=== PATIENT | female | born 1965 | race Caucasian/White ===

== ENCOUNTER → 2020-08-02 11:05 | Outpatient (CLI) | payer MEDICARE, MEDICAID, SELFPAY ==
--- NOTE | ~2020-08-02 | MM_ITS ---
EXAMINATION: MM screening dinora BI w rula HISTORY: Screening mammogram TECHNIQUE: Craniocaudal and mediolateral oblique 3-D tomosynthesis images were obtained and synthetic 2-D images were generated. CAD analysis was submitted and interpreted. COMPARISON: No prior mammogram is available for comparison at this institution. BREAST PARENCHYMAL COMPOSITION: There are scattered areas of fibroglandular density. FINDINGS: There is a 6 mm circumscribed mass at the posterior aspect of the mid to upper right breast , stable since 12/06/2015 mammogram. Stable circumscribed approximately 3.6 mm opacity in the outer mid right breast (craniocaudal Tomosyn thesis image ) There is no evidence of suspicious mass, calcification, or architectural distortion to suggest malign don in either breast. There has been no suspicious interval change. IMPRESSION: 1. No mammographic evidence of malignancy. 2. Recommend routine screening mammography in one year. BI-RADS Category 2: Benign finding(s). Reviewed, dictated and finalized at location A.
== END ==
PROVIDERS: Visit Provider Family Medicine
DX: Z12.31 Encounter for screening mammogram for malignant neoplasm of breast (principal)
CPT/HCPCS: 77063; 77067

== ENCOUNTER 2020-08-07 13:08 | Outpatient (CLI) | payer MEDICARE, SELFPAY ==
--- NOTE | ~2020-08-07 | US_ITS ---
EXAMINATION: US carotid duplex BI DATE: 08/07/2020 13:56 INDICATION: Posterior and dizziness TECHNIQUE: Grayscale, color Doppler, and pulsed Doppler images of the cervical carotid arteries were obtained. The degree of vessel stenosis is placed in one of the following categories: normal, <50%, 5 0-69%, >=70% but less than near-occlusion, near-occlusion, or total occlusion. Note that percent sten osis relative to normal distal artery lumen diameter is indirectly measured from velocity measurement s as described by [place], et al. Radiology 2003; 229:340-346. Notes: Normal: Peak systolic velocity <125 centimeters/sec and no plaque <50%. Peak systolic velocity <125 ( EDV <40; ICA/CCA PSV ratio <2.0; used these factors only a tandem lesions or low cardiac output or co ntralateral disease) 50-69 %: PSV 125-230 (EDV 40-100; ratio 2-4) >= 70% but less than near occlusion: PSV greater than 230 (EDV > 100; ratio> 4.0) Near Occlusion: PSV that is variable; markedly narrowed lumen Occlusion: Absent flow on color/spectral Doppler and no lumen on soria scale. COMPARISON: None. FINDINGS: RIGHT: The right common carotid artery (CCA) peak systolic velocity (PSV) is 103 cm/s. The right internal ca rotid artery (ICA) PSV is 81 cm/s. The right ICA end-diastolic velocity (EDV) is 24 cm/s. The right I CA/CCA PSV ratio is 0.8. The external carotid artery (ECA) PSV is 64 cm/s. There is antegrade flow in the right vertebral artery. LEFT: The left CCA PSV is 99 cm/s. The left ICA PSV is 92 cm/s. The left ICA EDV is 19 cm/s. The left ICA/C CA PSV ratio is 0.9. The ECA PSV is 76 cm/s. There is antegrade flow in the left vertebral artery. IMPRESSION: 1. Less than 50% stenosis in the right internal carotid artery by sonographic criteria. 2. Less than 50% stenosis in the left internal carotid artery by sonographic criteria. Reviewed, dictated and finalized at location A. IMPRESSION: 1. Less than 50% stenosis in the right internal carotid artery by sonographic lina hartman. 2. Less than 50% stenosis in the left internal carotid artery by sonographic tania aparicio.
== END 2020-08-07 13:09 | disposition home or self-care (01) ==
PROVIDERS: PCP Family Medicine; Visit Provider Family Medicine
DX: I65.23 Occlusion and stenosis of bilateral carotid arteries (principal)
CPT/HCPCS: 93880

== ENCOUNTER 2023-06-12 11:38 | Emergency (ER) | payer MEDICARE, MEDICAID, SELFPAY ==
--- NOTE | ~2023-06-12 | US_ITS ---
EXAMINATION: US venous doppler [facility] DATE: 06/12/2023 13:23 INDICATION: Left lower limb pain and swelling TECHNIQUE: Grayscale ultrasound images without and with compression and Doppler ultrasound images of the left lower extremity veins were obtained. COMPARISON: None. FINDINGS: The visualized portions of left common femoral vein, profunda (deep) femoral vein, femoral vein, popl iteal vein, peroneal veins, posterior tibial veins, gastrocnemius vein and greater saphenous vein out flow are patent. There is a small Hamilton's cyst measuring 6.1 x 1.3 x 2.4 cm at the popliteal fossa. T here is an additional long thin anechoic fluid collection along the superficial margin of the medial head of the gastrocnemius muscle which measures 9.7 cm in craniocaudal length and 1.2 x 0.5 cm in max imal transaxial dimensions. IMPRESSION: 1. No deep venous thrombosis in the left lower limb. 2. Small Hamilton's cyst. 3. Additional 9.7 x 1.2 x 0.5 similar fluid collection along the superficial margin of the medial hea d of the left gastrocnemius muscle which could represent either more caudal extension of the Hamilton's cyst, extravasated fluid from rupture of the Hamilton's cyst or an independent fluid collection such as hematoma in the setting of a muscle strain or abscess in the appropriate clinical setting. Reviewed, dictated and finalized at location A. IMPRESSION: 1. No deep venous thrombosis in the left lower limb. 2. Small Hamilton's cyst. 3. Additional 9.7 x 1.2 x 0.5 similar fluid collection along the superficial ma rgin of the medial head of the left gastrocnemius muscle which could represent either more caudal extension of the Hamilton's cyst, extravasated fluid from ruptu re of the Hamilton's cyst or an independent fluid collection such as hematoma in t he setting of a muscle strain or abscess in the appropriate clinical setting.
--- NOTE | ~2023-06-12 | XR_ITS ---
EXAMINATION: XR knee LT 3V DATE: 06/12/2023 13:46 INDICATION: Left knee pain and swelling TECHNIQUE: Anteroposterior, oblique and crosstable lateral views of the left knee were obtained COMPARISON: None. FINDINGS: Alignment is normal. No fracture. Joint spaces appear normal on nonweightbearing imaging with no mar ginal osteophytes. Small enthesophyte at the patellar insertion of the distal quadriceps tendon. Smal l left knee joint effusion. Soft tissues are unremarkable. IMPRESSION: 1. Small left knee joint effusion. No acute osseous abnormality. Reviewed, dictated and finalized at location A.
[2023-06-12 11:41] VITALS: BP 139/76; PULSE 83; RESP 20; TEMP 36.7; O2SAT 97
--- NOTE | 2023-06-12 12:55 | ED.GENADULT ---
HPI - General Adult General Chief complaint: Extremity Injury, Lower Stated complaint: Calf & knee pain Time Seen by Provider: 06/12/23 11:59 History of Present Illness HPI narrative: 57-year-old female presenting to the emergency department for evaluation of left calf and knee pain. Patient reports a history of infected corn on her left foot that has since been treated with antibiotics and improved. Patient states since that infection she has had worsening pain in her calf and left knee. Patient did have follow-up with her city superintendent of [place] and had x-rays of the foot but patient was referred to the emergency department for further evaluation of the calf and knee. Patient denies any prior history of PE or DVT. Related Data Allergies Allergy/AdvReac Type Severity Reaction Status Date / Time Sulfa (Sulfonamide Allergy Severe Anaphylaxis Verified 06/12/23 11:45 Antibiotics) Penicillins Allergy Unknown Unknown Verified 06/12/23 11:45 Review of Systems Review of Systems: All systems reviewed & are unremarkable except as noted in HPI and below PMFSH Family History Family History (Updated 09/21/15 @ 23:19 by DOCTOR UNKNOWN) Sibling Family history of diabetes mellitus in first degree relative Other Diabetes mellitus Family history of Alzheimer's disease Family history of alcoholism Family history of cardiovascular disease Family history of malignant neoplasm of male breast Social History Social History Smoking status: Never smoker Smoking end date: 02/24/12 Alcohol intake: current Exam Narrative: APPEARANCE: Well appearing, no pain, no distress, well-nourished. HEAD: normocephalic, atraumatic. EYES: PERRLA/EOMI, conjunctivae clear. NOSE: Normal no drainage EARS:TMS clear with good light reflex. THROAT: Pharynx clear, no exudate. NECK: Supple. No adenopathy, no masses. RESPIRATORY: Airway patent, respirations nonlabored. Clear to auscultation bilaterally, no rales, rhonchi, wheezing. CARDIOVASCULAR: Regular rate and rhythm without murmurs rubs or gallops. ABDOMINAL: Soft, nontender, nondistended, normal bowel sounds MUSCULOSKELETAL: No tenderness to left foot, no edema of left lower extremity, some posterior left calf tenderness and left knee pain NEURO: Alert. Cranial nerves II through XII intact. Good gait. Good coordination Course Vital Signs Vital signs: Vital Signs Temperature 98.1 F 06/12/23 11:41 Pulse Rate 83 06/12/23 11:41 Respiratory Rate 20 06/12/23 11:41 Blood Pressure 139/76 06/12/23 11:41 Pulse Oximetry 97 06/12/23 11:41 Oxygen Delivery Room Air 06/12/23 11:41 Temperature 97.5 F L 06/12/23 14:54 Pulse Rate 78 06/12/23 14:54 Respiratory Rate 15 06/12/23 14:54 Blood Pressure 125/65 06/12/23 14:54 Pulse Oximetry 99 06/12/23 14:54 Oxygen Delivery Room Air 06/12/23 11:41 Medical Decision Making MDM Narrative Medical decision making narrative: 57-year-old female presenting emergency department for evaluation of left knee pain and left calf swelling. Patient is afebrile with no leukocytosis and a stable hemoglobin of 15.2, patient has a normal INR 0.9, patient has no acute abnormalities on her CMP. Ultrasound was negative for DVT but did show possible Hamilton cyst along with a another fluid collection that could be extension of the Hamilton cyst. Patient is afebrile with no leukocytosis and no clinical evidence abscess or cellulitis on clinical exam so I suspected fluid collection is secondary to the Hamilton's cyst. Patient was provided crutches for limited weight-bearing and advised to take anti-inflammatories for pain control. Patient was encouraged of close follow-up with her primary care physician for re-evaluation. All questions concerns were addressed. Differential Diagnosis Differential Diagnosis: DVT, knee fracture, Hamilton's cyst, abscess, cellulitis Vital Signs Vital Signs: Vital Signs Temperature 98.1 F 06/12/23 11:41 Pulse Rate 83 06/12/23 11:41 Respiratory Rate 20 06/12/23 11:41 Blood Pressure 139/76 06/12/23 11:41 Pulse Oximetry 97 06/12/23 11:41 Oxygen Delivery Room Air 06/12/23 11:41 Temperature 97.5 F L 06/12/23 14:54 Pulse Rate 78 06/12/23 14:54 Respiratory Rate 15 06/12/23 14:54 Blood Pressure 125/65 06/12/23 14:54 Pulse Oximetry 99 06/12/23 14:54 Oxygen Delivery Room Air 06/12/23 11:41 Lab Data Lab results reviewed: Yes I reviewed the patient's lab results. 06/12/23 13:29 06/12/23 13:29 Labs: Lab Results 06/12/23 Range/Units 13:29 WBC 9.9 (4.5-10.0) K/mm3 RBC 4.95 (4.2-5.4) M/mm3 Hgb 15.2 H (12.0-15.0) g/dL Hct 46.1 (37.0-47.0) % MCV 93.1 (80-100) fl MCH 30.7 (26-34) pg MCHC 33.0 (32-36) g/dl RDW 13.5 (11.5-14.5) % Plt Count 244 (150-375) k/mm3 MPV 11.0 H (7.4-10.4) fl Immature Gran % (Auto) 0.8 H (0-0.5) % Neut % (Auto) 57.5 (45.5-73.1) % Lymph % (Auto) 29.2 (18.3-44.2) % Hickman % (Auto) 9.0 H (2.6-8.5) % Eos % (Auto) 2.8 (0-4.4) % Baso % (Auto) 0.7 (0.2-1.2) % Lymph # (Auto) 2.90 (0.9-3.2) K/mm3 Hickman # (Auto) 0.9 H (0.1-0.6) K/mm3 Eos # (Auto) 0.3 (0-0.3) K/mm3 Baso # (Auto) 0.1 (0.0-0.1) K/mm3 Abs Immat Gran (auto) 0.08 H (0.00-0.031) K/mm3 Absolute Neuts (auto) 5.7 (1.3-6.7) K/mm3 Absolute Nucleated RBC 0.000 (0.0-0.012) K/mm3 Nucleated RBC % 0.0 (0.0-0.2) % PT 12.2 (11.1-14.7) Seconds INR 0.9 APTT 26.2 (22.3-36.8) Seconds Sodium 137 (137-145) mmol/L Potassium 4.3 (3.4-5.0) mmol/L Chloride 102 (98-107) mmol/L Carbon Dioxide 29 (22-30) mmol/L Anion Gap 6 (4-12) mmol/L BUN 15 (7-17) mg/dL Creatinine 0.50 L (0.7-1.0) mg/dL Estim Creat Clear Calc 91 ml/min Estimated GFR > 60 (59 - ) Glucose 121 H (65-110) mg/dL Calcium 9.3 (8.4-10.2) mg/dL Total Bilirubin 0.3 (0.2-1.3) mg/dL AST 66 H (14-36) U/L ALT 89 H (6-35) U/L Alkaline Phosphatase 100 (38-126) U/L Total Protein 7.0 (6.3-8.2) g/dL Albumin 4.4 (3.5-5.1) g/dL Imaging Data Radiologist's impression: Impressions Knee X-Ray 06/12/23 13:53 IMPRESSION: 1. Small left knee joint effusion. No acute osseous abnormality. Foot X-Ray 06/12/23 13:57 Impression: Unremarkable left foot radiographs. Venous Doppler Study 06/12/23 14:01 IMPRESSION: 1. No deep venous thrombosis in the left lower limb. 2. Small Hamilton's cyst. 3. Additional 9.7 x 1.2 x 0.5 similar fluid collection along the superficial margin of the medial head of the left gastrocnemius muscle which could represent either more caudal extension of the Hamilton's cyst, extravasated fluid from rupture of the Hamilton's cyst or an independent fluid collection such as hematoma in the setting of a muscle strain or abscess in the appropriate clinical setting. Discharge Plan Discharge Clinical Impression: Hamilton cyst Patient Disposition: Home, Self-Care Condition: Stable Instructions: Antibiotic Form, Crutch Instructions (ED), Hamilton Cyst (ED) Additional Instructions: your ultrasound was negative for deep vein thrombosis but did show evidence of a Hamilton cyst. Crutches for comfort and limited weight-bearing. Anti-inflammatories as directed. And have close follow-up with Orthopedics. Have close follow-up with your primary care physician as well. If you have any worsening symptoms then please return to the emergency department. Follow-up/Referrals: Emiliano Patel MD [Physician] - Tejas,MD Natan [Primary Care Provider] -
[2023-06-12 13:39] LABS: Basophils Absolute Auto 0.1 K/mm3 (0.0-0.1); Basophils Percent Auto 0.7 % (0.2-1.2); Eosinophils Absolute Auto 0.3 K/mm3 (0-0.3); Eosinophils Percent Auto 2.8 % (0-4.4); Hematocrit 46.1 % (37.0-47.0); Hemoglobin 15.2 g/dL (12.0-15.0); Immature Granulocyte Absolute 0.08 K/mm3 (0.00-0.031); Immature Granulocyte Percent A 0.8 % (0-0.5); Lymphocytes Percent Auto 29.2 % (18.3-44.2); Mean Corpuscular Hemoglobin 30.7 pg (26-34); Mean Corpuscular Volume 93.1 fl (80-100); Monocytes Absolute Auto 0.9 K/mm3 (0.1-0.6); Neutrophils Absolute Auto 5.7 K/mm3 (1.3-6.7); Neutrophils Percent Auto 57.5 % (45.5-73.1); Platelet Count Result 244 k/mm3 (150-375); Red Blood Count 4.95 M/mm3 (4.2-5.4); Red Cell Distribution Width 13.5 % (11.5-14.5); White Blood Count 9.9 K/mm3 (4.5-10.0)
[2023-06-12 13:50] LABS: Alanine Aminotransferase 89 U/L (6-35); Albumin Level 4.4 g/dL (3.5-5.1); Alkaline Phosphatase 100 U/L (38-126); Anion Gap 6 mmol/L (4-12); Aspartate Amino Transferase 66 U/L (14-36); Bilirubin,Total 0.3 mg/dL (0.2-1.3); Blood Urea Nitrogen 15 mg/dL (7-17); Calcium 9.3 mg/dL (8.4-10.2); Carbon Dioxide 29 mmol/L (22-30); Chloride 102 mmol/L (98-107); Estimated CRCL calculation 91 ml/min; Estimated Glomerular Filt Rate > 60; Glucose 121 mg/dL (65-110); Potassium 4.3 mmol/L (3.4-5.0); Sodium 137 mmol/L (137-145)
[2023-06-12 13:54] LABS: INR 0.9; Prothrombin Time 12.2 Seconds (11.1-14.7)
[2023-06-12 13:55] LABS: Partial Thromboplastin Time 26.2 Seconds (22.3-36.8)
[2023-06-12 14:16] VITALS: BP 117/68; PULSE 67; RESP 15; O2SAT 99
[2023-06-12 14:54] VITALS: BP 125/65; PULSE 78; RESP 15; TEMP 36.4; O2SAT 99
== END 2023-06-12 14:57 | disposition home or self-care (01) ==
PROVIDERS: Emergency Provider Emergency Medicine; PCP Internal Medicine
DX: M71.22 Synovial cyst of popliteal space [Baker], left knee (principal)
CPT/HCPCS: 36415; 73562; 73630; 80053; 85025; 85610; 85730; 93971; 99284